=== PATIENT | male | born 2000 | race African-American/Black ===

== ENCOUNTER 2021-06-05 01:48 | Emergency (ER) | payer SELFPAY ==
[2021-06-05 01:55] VITALS: BP 111/65; PULSE 80; RESP 19; TEMP 98
--- NOTE | 2021-06-05 02:04 | ED ---
Recheck HPI - General Chief Complaint: Recheck/Abnormal Lab/Rx Stated Complaint: Covid Test Time Seen by Provider: 06/05/21 01:52 Source: patient Mode of arrival: ambulatory - History of Present Illness Initial Comments: 21 year-old male patient presenting for COVID-19 test in order to [place]. He denies any symptoms or known exposures. Denies need for further testing or evaluation. - Related Data Allergies Allergy/AdvReac Type Severity Reaction Status Date / Time No Known Allergies Allergy Verified 06/05/21 01:55 Review of Systems ROS Statement: Those systems with pertinent positive or pertinent negative responses have been documented in the HPI. ROS Other: All systems not noted in ROS Statement are negative. Past Medical History Past Medical History: No Reported History History of Any Multi-Drug Resistant Organisms: None Reported Past Surgical History: No Surgical Hx Reported Past Psychological History: No Psychological Hx Reported Smoking Status: Never smoker Past Alcohol Use History: None Reported Past Drug Use History: None Reported General Exam General appearance: alert, in no apparent distress Neurological exam: Present: alert, oriented X3 Psychiatric exam: Present: normal affect, normal mood Skin exam: Present: warm, dry, intact, normal color. Absent: rash Course Vital Signs 06/05/21 01:52 Temperature 98 F Pulse Rate 80 Respiratory 19 Rate Blood Pressure 111/65 O2 Sat by Pulse 98 Oximetry Medical Decision Making - Medical Decision Making 21 year-old male patient presents to the emergency department for COVID testing [place]. Test was negative. He was provided with result. My attending is Dr. Ponce. - Lab Data Lab Results 06/05/21 Range/Units 02:10 Coronavirus (PCR) Not Detected (Not Detectd) Disposition Clinical Impression: Encounter for laboratory testing for COVID-19 virus Disposition: HOME SELF-CARE Condition: Good Instructions (If sedation given, give patient instructions): Coronavirus Disease 2019 (COVID-19) Is patient prescribed a controlled substance at d/c from ED?: No Referrals: None,Stated [Primary Care Provider] - 1-2 days
== END 2021-06-05 02:53 | disposition home or self-care (01) ==
LOC: EC 01:48
DX: Z11.52 Encounter for screening for COVID-19 (principal); Z20.822 Contact with and (suspected) exposure to COVID-19
CPT/HCPCS: 87635; 99282